=== PATIENT | female | born 1940 | race Caucasian/White ===

== ENCOUNTER 2017-07-14 12:00 | Inpatient (IN) | payer OTHER ==
[~2017-07-14] VITALS: Ht 167.6 cm; Wt 81.6 kg
[2017-07-14] MEDS ORDERED: AVAPRO300 MG PO (14:29)
[2017-07-14] MEDS ORDERED: [UNRECOGNIZED DRUG - OTHER] PO (14:30)
[2017-07-14] MEDS ORDERED: CATAFLAN PO (14:31)
[2017-07-14] MEDS ORDERED: PREDNISONE PO (14:31)
[2017-07-14] MEDS ORDERED: FOLIC ACID1 MG PO (14:31)
[2017-07-22] MEDS ORDERED: CLONAZEPAM1 MG PO (10:12)
[2017-07-22] MEDS ORDERED: DOCUSATE SODIU100 MG PO (10:12)
[2017-07-22] MEDS ORDERED: PERCOCET 5-3251 EACH PO (10:12)
[2017-07-22] MEDS ORDERED: GABAPENTIN800 MG PO (10:12)
[2017-07-22] MEDS ORDERED: AZITHROMYCIN1 GM PO (10:13)
== END 2017-07-22 18:51 | DRG 460 ==
LOC: PED 07-21 06:09 → O/R 07-21 06:09 → SURH 07-21 09:45 → PED 07-21 17:46
PROVIDERS: Orthopaedic Surgery Orthopaedic Surgery of the Spine
PROC: 0ST20ZZ Resection of Lumbar Vertebral Disc, Open Approach (ICD-10-PCS; 2017-07-21)
PROC: 0SG00AJ Fusion of Lumbar Vertebral Joint with Interbody Fusion Device, Posterior Approach, Anterior Column, Open Approach (ICD-10-PCS; 2017-07-21)
PROC: 07DS0ZZ Extraction of Vertebral Bone Marrow, Open Approach (ICD-10-PCS; 2017-07-21)
PROC: 0SG00A0 Fusion of Lumbar Vertebral Joint with Interbody Fusion Device, Anterior Approach, Anterior Column, Open Approach (ICD-10-PCS; principal; 2017-07-21 09:45)
DX: M48.062 Spinal stenosis, lumbar region with neurogenic claudication (principal); M43.16 Spondylolisthesis, lumbar region; M47.26 Other spondylosis with radiculopathy, lumbar region; M51.16 Intervertebral disc disorders with radiculopathy, lumbar region; I10 Essential (primary) hypertension